=== PATIENT | female | born 1990 | race Caucasian/White ===

== ENCOUNTER 2020-05-15 17:09 | Emergency (ER) | payer SELFPAY ==
--- NOTE | 2020-05-15 18:04 | EDM.PDOC ---
ED HPI GENERAL MEDICAL PROBLEM - General Chief Complaint: Gastrointestinal Problem Stated Complaint: SHOOTING PAIN FROM FRONT TO BACK IN ABDM Time Seen by Provider: 05/15/20 17:43 Source of Information: Reports: Patient History Limitations: Reports: No Limitations - History of Present Illness INITIAL COMMENTS - FREE TEXT/NARRATIVE: HISTORY AND PHYSICAL: History of present illness: Patient is a 29-year-old female who presents emergency room today with concern of epigastric abdominal pain that radiated to her back for 30 minutes just prior to arrival to the emergency room. Patient states she is currently not having any symptoms or abdominal pain. Patient states that she was eating and 10 minutes later started developing right upper quadrant/epigastric abdominal pain that radiated and wrapped around to her back. Patient states that she describes as sharp in nature. Patient states she has had episodes of these prior, but none of them have ever lasted as long. Patient states she felt nauseous during the event but did not vomit. Patient states that at this time she is currently free of all symptoms. Patient denies fever, chills, chest pain, shortness of breath, or cough. Denies headache, neck stiff ness, change in vision, syncope, or near syncope. Denies nausea, vomiting, abdominal pain, diarrhea, constipation, or dysuria. Has not noted any blood in urine or stool. Patient has been eating and drinking appropriately. Review of systems: As per history of present illness and below otherwise all systems reviewed and negative. Past medical history: As per history of present illness and as reviewed below otherwise noncontributory. Surgical history: As per history of present illness and as reviewed below otherwise noncontributory. Social history: See social history for further information Family history: As per history of present illness and as reviewed below otherwise noncontributory. Physical exam: General: Patient is alert, oriented, and in no acute distress. Patient sitting comfortably on exam table. Vitals stable and reviewed by me. HEENT: Atraumatic, normocephalic, pupils equal and reactive bilaterally, negative for conjunctival pallor or scleral icterus, mucous membranes moist, TMs normal bilaterally, throat clear, neck supple, nontender, trachea midline. No drooling or trismus noted. No meningeal signs. No hot potato voice noted. Lungs: Clear to auscultation, breath sounds equal bilaterally, chest nontender. Heart: S1S2, regular rate and rhythm without overt murmur Abdomen: Soft, nondistended, nontender, negative Hammer/rebound. Negative for masses or hepatosplenomegaly. Negative for costovertebral tenderness. Pelvis: Stable nontender. Genitourinary: Deferred. Rectal: Deferred. Skin: Intact, warm, dry. No lesions or rashes noted. Extremities: Atraumatic, negative for cords or calf pain. Neurovascular unremarkable. Neuro: Awake, alert, oriented. Cranial nerves II through XII unremarkable. Cerebellum unremarkable. Motor and sensory unremarkable throughout. Exam nonfocal. Notes: Due to the description of patient's symptoms, I do suspect gallbladder etiology. I did offer diagnostics and lab evaluation at this time but patient declines as she is currently symptom-free. I discussed with patient trying a low-fat diet and discussed following up with her primary care provider or general surgery for further evaluation of her gallbladder. Signs and symptoms that were prompt return to the ED thoroughly discussed with patient. Discussed importance for follow-up with a primary care provider. Voices understanding and is agreeable to plan of care. Denies any further questions or concerns at this time. Diagnostics: None Therapeutics: None Prescription: None Impression: Medical screening exam History of right upper quadrant abdominal pain Plan: 1. You can alternate ibuprofen and Tylenol as directed for pain and discomfort. 2. Follow-up with a primary care provider as discussed. Return to the ED as needed and as discussed. 3. Try to keep a low-fat diet as discussed. Definitive disposition and diagnosis as appropriate pending reevaluation and review of above. Abdomen Pain Score (Numeric/FACES): 2 - Related Data Allergies Allergy/AdvReac Type Severity Reaction Status Date / Time No Known Allergies Allergy Verified 02/23/19 11:15 Past Medical History - Infectious Disease History Infectious Disease History: Reports: Chicken Pox - Past Surgical History GI Surgical History: Reports: Bariatric Procedure Other GI Surgeries/Procedures: gastric sleeve 2019 Social & Family History - Family History Family Medical History: No Pertinent Family History - Tobacco Use Tobacco Use Status *Q: Current Every Day Tobacco User Years of Tobacco use: 12 Packs/Tins Daily: 0.5 - Caffeine Use Caffeine Use: Reports: Coffee Other Caffeine Use: 24 oz/day - Recreational Drug Use Recreational Drug Use: No ED ROS GENERAL - Review of Systems Review Of Systems: Comprehensive ROS is negative, except as noted in HPI. ED EXAM, GENERAL - Physical Exam Exam: See Below (see dictation) Course - Vital Signs Last Recorded V/S: Last Vital Signs Temp 97.3 F 05/15/20 17:35 Pulse 75 05/15/20 17:35 Resp 20 05/15/20 17:35 BP 116/66 05/15/20 17:35 Pulse Ox 97 05/15/20 17:35 Departure - Departure Time of Disposition: 18:03 Disposition: Home, Self-Care 01 Clinical Impression: History of abdominal pain, Encounter for medical screening examination - Discharge Information Referrals: Esperanza Silva NP [Primary Care Provider] - Forms: ED Department Discharge Additional Instructions: The following information is given to patients seen in the emergency department who are being discharged to home. This information is to outline your options for follow-up care. We provide all patients seen in our emergency department with a follow-up referral. The need for follow-up, as well as the timing and circumstances, are variable depending upon the specifics of your emergency department visit. If you don't have a primary care physician on staff, we will provide you with a referral. We always advise you to contact your personal physician following an emergency department visit to inform them of the circumstance of the visit and for follow-up with them and/or the need for any referrals to a consulting sp ecialist. The emergency department will also refer you to a specialist when appropriate. This referral assures that you have the opportunity for follow-up care with a specialist. All of these measure are taken in an effort to provide you with optimal care, which includes your follow-up. Under all circumstances we always encourage you to contact your private physician who remains a resource for coordinating your care. When calling for follow-up care, please make the office aware that this follow-up is from your recent emergency room visit. If for any reason you are refused follow-up, please contact the [facility] Emergency Department at and asked to speak to the emergency department charge nurse. [facility] Primary Care [address] [place] [id number] [id number] [facility] - General Surgery Professional Building [address] [place] [address], [address] [place] [address] 1. You can alternate ibuprofen and Tylenol as directed for pain and discomfort. 2. Follow-up with a primary care provider as discussed. Return to the ED as needed and as discussed. 3. Try to keep a low-fat diet as discussed. Sepsis Event Note (ED) - Evaluation Sepsis Screening Result: No Definite Risk - Focused Exam Vital Signs: Vital Signs Temp Pulse Resp BP Pulse Ox 05/15/20 17:35 97.3 F 75 20 116/66 97
== END 2020-05-15 18:36 | disposition home or self-care (01) ==
LOC: MW.ED 17:09
DX: R10.11 Right upper quadrant pain (principal); R11.0 Nausea; Z72.0 Tobacco use
CPT/HCPCS: 99282

== ENCOUNTER 2020-05-16 17:22 | Emergency (ER) | payer SELFPAY ==
[2020-05-16] MEDS ORDERED: Sodium Chloride 0.9% 10 ML Syringe FLUSH PRN (17:36)
[2020-05-16] MEDS ORDERED: Sodium Chloride 0.9% 2.5 ML Syringe FLUSH PRN (17:36)
[2020-05-16] MEDS ORDERED: Morphine 4 MG/ML Syringe IVPUSH ONE (17:37)
[2020-05-16] MEDS ORDERED: Lactated Ringers 1,000 ML IV SCH (17:45)
[2020-05-16 18:15] LABS: BLOOD UREA NITROGEN,BUN 12 mg/dL (7.0-18.0); CARBON DIOXIDE,CO2 25.5 mmol/L (21.0-32.0); CHLORIDE,CL 102 mmol/L (98-107); GLUCOSE RANDOM 105 mg/dL (74-106); LIPASE 156 U/L (73-393); POTASSIUM,K 3.8 mmol/L (3.5-5.1); SODIUM,NA 139 mmol/L (136-145)
[2020-05-16] MEDS ORDERED: cefTRIAXone 1 GM in Premix Bag 1 BAG IV ONE (18:34)
--- NOTE | 2020-05-16 19:38 | EDM.PDOC ---
<Harshad Rogers - Last Filed: 05/16/20 19:36> ED HPI GENERAL MEDICAL PROBLEM - General Chief Complaint: Abdominal Pain Stated Complaint: GALLBLADDER Time Seen by Provider: 05/16/20 17:31 - History of Present Illness INITIAL COMMENTS - FREE TEXT/NARRATIVE: CHIEF COMPLAINT(S): Abdominal pain HISTORY OF PRESENT ILLNESS: This is a 29-year-old woman without any past medical history who comes to the emergency department with a chief complaint of abdominal pain. The patient states that she was evaluated here yesterday and told that she may have gallbladder issues. She states that she called and made an appointment today but has an appointment tomorrow however she started to experience severe and constant epigastric and right upper quadrant pain associated with nausea but no vomiting. She denies any exacerbating factors or relieving factors. She denies any radiation of this pain. She denies any melena, hematochezia, hematemesis, bilious emesis. She denies any vaginal bleeding, vaginal discharge or dysuria. She denies any fevers or chills. REVIEW OF SYSTEMS: Constitutional: Denies fever, chills. Eyes: Denies eye pain Ears, Nose, Mouth, & Throat: Denies earache Cardiovascular: Denies chest pain Respiratory: Denies shortness of breath Gastrointestinal: Positive for epigastric and right upper quadrant abdominal pain and nausea. Denies vomiting, diarrhea, hematochezia, melena, hematemesis, bilious emesis Genitourinary: Denies hematuria, dysuria Skin:Denies a rash MSK: Denies joint pain Neurological: Denies blurred vision Psychiatric: Denies depression PAST MEDICAL HISTORY: As per history of present illness and as reviewed below otherwise noncontributory. SURGICAL HISTORY: As per history of present illness and as reviewed below otherwise noncontributory. SOCIAL HISTORY: As per history of present illness and as reviewed below otherwise noncontributory. FAMILY HISTORY: As per history of present illness and as reviewed below otherwise noncontributory. EXAMINATION OF ORGAN SYSTEMS/BODY AREAS: Constitutional: Blood pressure is 136/70, heart rate 85, respiratory rate 18 with an oxygen saturation 100 on room air. Temperature 36.2 General: Young woman who is crying and appears to be in pain Psychiatric: Appropriate mood and affect. Eyes: No scleral icterus or conjunctival erythema ENMT: Moist mucous membranes. No pharyngeal erythema Cardiovascular: Regular, rate, and rhythm. No gallops, murmurs, or rubs. Bilateral upper extremity pulses symmetric and intact. No peripheral edema. No JVD. Respiratory: Lungs clear to auscultation bilaterally. No wheezes, rales, or rhonchi. Gastrointestinal: Soft, nondistended, tenderness to palpation in the epigastric and right upper quadrant. Positive Hammer's. Negative rebound or guarding. Normoactive bowel sounds. Genitourinary: No suprapubic tenderness Musculoskeletal: Normal range of motion. Skin: No lesions or abrasions. Neurological: Alert, GCS 15 MEDICAL DECISION MAKING AND COURSE IN THE ED WITH INTERPRETATION/REVIEW OF DIAGNOSTIC STUDIES: This is a 21-year-old woman without any past medical history who comes to the emergency department with acute recurrent right upper quadrant abdominal pain with positive Hammer sign who has stable vitals. At this time we will obtain labs including CBC, CMP, lipase, urinalysis and Covid. Will obtain a right upper quadrant ultrasound and provide her with 1 L of lactated Ringer's bolus and 4 mg of IV morphine. Laboratory: CBC reveals a leukocytosis of 12.69 and thrombocytopenia with a platelet count of 97. CMP reveals hyperbilirubinemia with a total bilirubin of 1.4, transaminitis with an AST of 259, ALT of 224 and elevated alkaline phosphatase at 255. Covid is negative. Urinalysis was a clean catch and was negative for leukocyte esterase, negative for nitrites, and negative for blood. 4+ urobilinogen interpretation: Negative. Reevaluation, patient's pain had improved. Imaging was pending at this time. I did provide the patient with 1 g of ceftriaxone IV given the mild elevated white count and concern for cholecystitis. The patient was signed out to oncoming team physician pending ultrasound read and final disposition DISPOSITION: Patient was signed out to oncoming team physician pending final read and disposition CONDITION: Fair PROCEDURES: None FINAL IMPRESSION(S)/DIAGNOSES: 1. Acute recurrent right upper quadrant abdominal pain, suspect cholecystitis Harshad Rogers M.D. Middle Abdomen Pain Score (Numeric/FACES): 9 - Related Data Allergies Allergy/AdvReac Type Severity Reaction Status Date / Time No Known Allergies Allergy Verified 05/16/20 17:30 Home Meds: Home Meds Dicyclomine [Bentyl] 20 mg PO QIDACANDBED PRN #20 tab 05/16/20 [Rx] Ibuprofen 600 mg PO Q6HR PRN #30 tablet 05/16/20 [Rx] Omeprazole 20 mg PO DAILY 05/16/20 [History] Ondansetron [Zofran ODT] 4 mg PO Q6H PRN #12 tab.dis 05/16/20 [Rx] traMADol [Ultram] 50 mg PO Q6H PRN #12 tab 05/16/20 [Rx] Past Medical History - Past Health History Medical/Surgical History: Denies Medical/Surgical History HEENT History: Reports: Impaired Vision 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: Reports: GERD 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 MCKAY History: Reports: Polycystic Ovaries - Infectious Disease History Infectious Disease History: Reports: Chicken Pox - Past Surgical History GI Surgical History: Reports: Bariatric Procedure Other GI Surgeries/Procedures: gastric sleeve 2019 Social & Family History - Family History Family Medical History: No Pertinent Family History - Tobacco Use Tobacco Use Status *Q: Current Every Day Tobacco User Years of Tobacco use: 13 Packs/Tins Daily: 0.5 - Caffeine Use Caffeine Use: Reports: Coffee Other Caffeine Use: 24 oz/day - Recreational Drug Use Recreational Drug Use: No ED ROS GENERAL - Review of Systems Review Of Systems: See Below ED EXAM, GENERAL - Physical Exam Exam: See Below Departure - Departure Disposition: Home, Self-Care 01 Clinical Impression: Cholelithiasis with choledocholithiasis - Discharge Information Instructions: Cholelithiasis, Biliary Colic, Adult Referrals: Esperanza Silva LANDSCAPE ENGINEER [Primary Care Provider] - Forms: ED Department Discharge Additional Instructions: You were seen and evaluated ER today secondary to pain in your right upper quadrant. This pain is most likely secondary to gallstones within your gallbladder. Your ultrasound does not reveal any evidence of a gallbladder infection. Please keep your appointment tomorrow with Dr. Ronquillo for further luis luation of your gallbladder. Please return to the ER if your pain returns. You will be sent home with a prescription for Zofran to take for nausea Ibuprofen to take for pain Ultram to take for pain Bentyl to take for abdominal spasms. [facility] - General Surgery Professional Building [address] [place] [address], [address] [place] [address] The following information is given to patients seen in the emergency department who are being discharged to home. This information is to outline your options for follow-up care. We provide all patients seen in our emergency department with a follow-up referral. The need for follow-up, as well as the timing and circumstances, are variable depending upon the specifics of your emergency department visit. If you don't have a primary care physician on staff, we will provide you with a referral. We always advise you to contact your personal physician following an emergency department visit to inform them of the circumstance of the visit and for follow-up with them and/or the need for any referrals to a consulting specialist. The emergency department will also refer you to a specialist when appropriate. This referral assures that you have the opportunity for follow-up care with a specialist. All of these measure are taken in an effort to provide you with optimal care, which includes your follow-up. Under all circumstances we always encourage you to contact your private physician who remains a resource for coordinating your care. When calling for follow-up care, please make the office aware that this follow-up is from your recent emergency room visit. If for any reason you are refused follow-up, please contact the [facility] Emergency Department at and asked to speak to the emergency department charge nurse. [facility] - Primary Care [address] [place] [address] [place] [address] Sepsis Event Note (ED) - Evaluation Sepsis Screening Result: No Definite Risk <Sha Herzog - Last Filed: 05/16/20 20:17> ED HPI GENERAL MEDICAL PROBLEM - History of Present Illness INITIAL COMMENTS - FREE TEXT/NARRATIVE: 7 PM: Signout received. In brief this is a 29-year-old female who has a second presentation to the ED secondary to right upper quadrant abdominal pain. Upon my arrival into the ED, the patient reports that her pain is completely resolved and she feels much improved. This appears to be a similar presentation as yesterday. Patient's labs are significant for mildly elevated LFTs. Patient's ultrasound reveals normal gallbladder with no evidence of cholecystitis. No biliary ductal dilatation. No pericholecystic fluid or thickening of her gallbladder wall. No sonographic Hammer sign. Patient's repeat exam right now despite mashing in her right upper quadrant has no discomfort or wincing. Gibran duncan has a appointment with Dr. Ronquillo our surgeon tomorrow at 230. Patient feels very comfortable with the plan to be discharged home at this time with Sara Garcia Ultram, Bentyl. I have discussed with the patient dietary restrictions. Patient reports she did not eat anything this afternoon or evening prior to the onset of her pain. Abd: Soft, nondistended, no rebound/guarding, no psoas or obturator signs, no tenderness at Mcberney's point, no Hammer's sign. Pt does not present with an exam that would be consistent with an acute surgical abdomen at this time Discharged home with follow-up with Dr. Ronquillo. Diagnosis: Choledocholithiasis. Resolved Course - Vital Signs Last Recorded V/S: Last Vital Signs Temp 97.2 F 05/16/20 17:31 Pulse 85 05/16/20 17:31 Resp 18 05/16/20 17:31 BP 136/70 05/16/20 17:31 Pulse Ox 100 05/16/20 17:31 - Orders/Labs/Meds Orders: Active Orders 24 hr Category Date Time Status Lactated Ringers [Ringers, Lactated] 1,000 ml Med 05/16/20 17:45 Active IV ASDIRECTED Sodium Chloride 0.9% [Saline Flush] Med 05/16/20 17:36 Active 10 ml FLUSH ASDIRECTED PRN Sodium Chloride 0.9% [Saline Flush] Med 05/16/20 17:36 Active 2.5 ml FLUSH ASDIRECTED PRN Saline Lock Insert [OM.PC] Stat Oth 05/16/20 17:36 Ordered Medication Orders Lactated Ringer's (Ringers, Lactated) 1,000 mls @ 999 mls/hr IV ASDIRECTED WATSON Last Admin: 05/16/20 17:45 Dose: 999 mls/hr Documented by: WAYNE Sodium Chloride (Sodium Chloride 0.9% 10 Ml Syringe) 10 ml FLUSH ASDIRECTED PRN PRN Reason: Keep Vein Open Last Admin: 05/16/20 17:45 Dose: 10 ml Documented by: WAYNE Sodium Chloride (Sodium Chloride 0.9% 2.5 Ml Syringe) 2.5 ml FLUSH ASDIRECTED PRN PRN Reason: Keep Vein Open Last Admin: 05/16/20 17:45 Dose: 2.5 ml Documented by: WAYNE Labs: Laboratory Tests 05/16/20 05/16/20 05/16/20 Range/Units 17:35 17:35 17:40 WBC 12.69 H (4.0-11.0) K/uL RBC 5.47 (4.30-5.90) M/uL Hgb 16.1 H (12.0-16.0) g/dL Hct 46.5 H (36.0-46.0) % MCV 85.0 (80.0-98.0) fL MCH 29.4 (27.0-32.0) pg MCHC 34.6 (31.0-37.0) g/dL RDW Std Deviation 37.5 (28.0-62.0) fl RDW Coeff of Hayden 12 (11.0-15.0) % Plt Count 97 L (150-400) K/uL MPV 11.40 (7.40-12.00) fL Neut % (Auto) 64.6 (48.0-80.0) % Lymph % (Auto) 26.5 (16.0-40.0) % [place] % (Auto) 7.4 (0.0-15.0) % Eos % (Auto) 1.3 (0.0-7.0) % Baso % (Auto) 0.2 (0.0-1.5) % Neut # (Auto) 8.2 H (1.4-5.7) K/uL Lymph # (Auto) 3.4 H (0.6-2.4) K/uL [place] # (Auto) 0.9 H (0.0-0.8) K/uL Eos # (Auto) 0.2 (0.0-0.7) K/uL Baso # (Auto) 0.0 (0.0-0.1) K/uL Nucleated RBC % 0.0 /100WBC Nucleated RBCs # 0 K/uL Sodium 139 (136-145) mmol/L Potassium 3.8 (3.5-5.1) mmol/L Chloride 102 (98-107) mmol/L Carbon Dioxide 25.5 (21.0-32.0) mmol/L BUN 12 (7.0-18.0) mg/dL Creatinine 0.8 (0.6-1.0) mg/dL Est Cr Clr Drug Dosing 94.21 mL/min Estimated GFR (MDRD) > 60.0 ml/min Glucose 105 (74-106) mg/dL Calcium 9.3 (8.5-10.1) mg/dL Total Bilirubin 1.4 H (0.2-1.0) mg/dL AST 259 H (15-37) IU/L ALT 224 H (14-63) IU/L Alkaline Phosphatase 255 H (46-116) U/L Total Protein 7.5 (6.4-8.2) g/dL Albumin 4.0 (3.4-5.0) g/dL Globulin 3.5 (2.6-4.0) g/dL Albumin/Globulin Ratio 1.1 (0.9-1.6) Lipase 156 (73-393) U/L Urine Color YELLOW Urine Appearance CLEAR Urine pH 7.0 (5.0-8.0) Ur Specific Crow[place] 1.025 (1.001-1.035) Urine Protein NEGATIVE (NEGATIVE) mg/dL Urine Glucose (UA) NEGATIVE (NEGATIVE) mg/dL Urine Ketones NEGATIVE (NEGATIVE) mg/dL Urine Occult Blood NEGATIVE (NEGATIVE) Urine Nitrite NEGATIVE (NEGATIVE) Urine Bilirubin NEGATIVE (NEGATIVE) Urine Urobilinogen 4.0 H (<2.0) EU/dL Ur Leukocyte Esterase NEGATIVE (NEGATIVE) Urine HCG, Qual (NEGATIVE) SARS-CoV-2 RNA (ROSANA) (NEGATIVE) 05/16/20 05/16/20 Range/Units 17:40 17:45 WBC (4.0-11.0) K/uL RBC (4.30-5.90) M/uL Hgb (12.0-16.0) g/dL Hct (36.0-46.0) % MCV (80.0-98.0) fL MCH (27.0-32.0) pg MCHC (31.0-37.0) g/dL RDW Std Deviation (28.0-62.0) fl RDW Coeff of Hayden (11.0-15.0) % Plt Count (150-400) K/uL MPV (7.40-12.00) fL Neut % (Auto) (48.0-80.0) % Lymph % (Auto) (16.0-40.0) % [place] % (Auto) (0.0-15.0) % Eos % (Auto) (0.0-7.0) % Baso % (Auto) (0.0-1.5) % Neut # (Auto) (1.4-5.7) K/uL Lymph # (Auto) (0.6-2.4) K/uL [place] # (Auto) (0.0-0.8) K/uL Eos # (Auto) (0.0-0.7) K/uL Baso # (Auto) (0.0-0.1) K/uL Nucleated RBC % /100WBC Nucleated RBCs # K/uL Sodium (136-145) mmol/L Potassium (3.5-5.1) mmol/L Chloride (98-107) mmol/L Carbon Dioxide (21.0-32.0) mmol/L BUN (7.0-18.0) mg/dL Creatinine (0.6-1.0) mg/dL Est Cr Clr Drug Dosing mL/min Estimated GFR (MDRD) ml/min Glucose (74-106) mg/dL Calcium (8.5-10.1) mg/dL Total Bilirubin (0.2-1.0) mg/dL AST (15-37) IU/L ALT (14-63) IU/L Alkaline Phosphatase (46-116) U/L Total Protein (6.4-8.2) g/dL Albumin (3.4-5.0) g/dL Globulin (2.6-4.0) g/dL Albumin/Globulin Ratio (0.9-1.6) Lipase (73-393) U/L Urine Color Urine Appearance Urine pH (5.0-8.0) Ur Specific [place] (1.001-1.035) Urine Protein (NEGATIVE) mg/dL Urine Glucose (UA) (NEGATIVE) mg/dL Urine Ketones (NEGATIVE) mg/dL Urine Occult Blood (NEGATIVE) Urine Nitrite (NEGATIVE) Urine Bilirubin (NEGATIVE) Urine Urobilinogen (<2.0) EU/dL Ur Leukocyte Esterase (NEGATIVE) Urine HCG, Qual NEGATIVE (NEGATIVE) SARS-CoV-2 RNA (ROSANA) NEGATIVE (NEGATIVE) Meds: Medications Generic Name Dose Route Start Last Admin Trade Name Freq PRN Reason Stop Dose Admin Lactated Ringer's 1,000 mls @ 999 mls/hr 05/16/20 17:45 05/16/20 17:45 Ringers, Lactated IV 999 mls/hr ASDIRECTED WATSON Administration Sodium Chloride 10 ml 05/16/20 17:36 05/16/20 17:45 Sodium Chloride 0.9% 10 Ml Syringe FLUSH 10 ml ASDIRECTED PRN Administration Keep Vein Open Sodium Chloride 2.5 ml 05/16/20 17:36 05/16/20 17:45 Sodium Chloride 0.9% 2.5 Ml Syringe FLUSH 2.5 ml ASDIRECTED PRN Administration Keep Vein Open Discontinued Medications Generic Name Dose Route Start Last Admin Trade Name Freq PRN Reason Stop Dose Admin Ceftriaxone Sodium/Dextrose 1 50 mls @ 100 mls/hr 05/16/20 18:34 05/16/20 18:59 gm/ Premix IV 05/16/20 19:03 100 mls/hr ONETIME ONE Administration Morphine Sulfate 4 mg 05/16/20 17:37 05/16/20 17:45 Morphine 4 Mg/Ml Syringe IVPUSH 05/16/20 17:38 4 mg ONETIME ONE Administration Departure - Departure Time of Disposition: 20:13 Condition: Good Sepsis Event Note (ED) - Focused Exam Vital Signs: Vital Signs Temp Pulse Resp BP Pulse Ox 05/16/20 17:31 97.2 F 85 18 136/70 100
--- NOTE | 2020-05-16 19:41 | US ---
INDICATION: Midline pain and right upper quadrant pain. Possible cholecystitis. COMPARISON: None available. TECHNIQUE: Ultrasound examination of the right upper quadrant was performed. FINDINGS: There is moderate cholelithiasis, with numerous small dependent calculi in the gallbladder. There is no sign of acute cholecystitis, with no sign of gallbladder wall thickening or pericholecystic fluid. A sonographic Hammer sign is not present, with no pain over the gallbladder during ultrasound examination. The common bile duct is normal in caliber at 5 mm. The pancreatic head and body were examined, and these are normal in appearance. The abdominal aorta and visualized portions of the inferior vena cava are normal in appearance. The liver shows no sign of mass or contour abnormality, and there is no sign of ascites. Antegrade flow is seen in the portal vein. The right kidney is unremarkable. IMPRESSION: Cholelithiasis without evidence of acute cholecystitis. Common bile duct nondilated at 5 millimeters. Dictated by Jin Sherman MD @ May 16 2020 7:37PM Signed by Dr. Jin Sherman @ May 16 2020 7:39PM
== END 2020-05-16 20:31 | disposition home or self-care (01) ==
LOC: MW.ED 17:22
DX: K80.70 Calculus of gallbladder and bile duct without cholecystitis without obstruction (principal); K21.9 Gastro-esophageal reflux disease without esophagitis; Z72.0 Tobacco use; Z79.899 Other long term (current) drug therapy; Z20.822 Contact with and (suspected) exposure to COVID-19
CPT/HCPCS: 36415; 76705; 80053; 81003; 81025; 83690; 85025; 87635; 96365; 96375; 99284; J0696; J2270; J7120; U0002

== ENCOUNTER 2020-05-20 08:58 | Day surgery (SDC) | payer SELFPAY ==
[~2020-05-20 08:58] MED LIST: Glycopyrrolate 0.2 MG/ML SDV ONE; Ketorolac 30 MG/ML SDV ONE; Lactated Ringers 1,000 ML IV SCH; Lidocaine 2% 5 ML SDV ONE; Midazolam 1 MG/ML 2 ML SDV ONE; Ondansetron 4 MG/2 ML SDV ONE; Propofol 200 MG/20 ML SDV ONE; Rocuronium Bromide 50 MG/5 ML Syringe ONE; Sugammadex Sodium 200 MG/2 ML VIAL ONE; ceFAZolin 2 GM in Premix Bag 1 BAG IV ONE; fentaNYL 250 MCG/5 ML SDV ONE
[2020-05-20] MEDS ORDERED: Octyl 2-Cyanoacrylate 1 Tube ONE (09:51)
[2020-05-20] MEDS ORDERED: Bupivacaine 25%/EPINEPHrine/PF 0 ML ONE (09:51)
[2020-05-20 10:14] LABS: BLOOD UREA NITROGEN,BUN 7 mg/dL (7.0-18.0); CARBON DIOXIDE,CO2 27.6 mmol/L (21.0-32.0); CHLORIDE,CL 104 mmol/L (98-107); GLUCOSE RANDOM 92 mg/dL (74-106); LIPASE 94 U/L (73-393); POTASSIUM,K 4.5 mmol/L (3.5-5.1); SODIUM,NA 139 mmol/L (136-145)
[2020-05-20] MEDS ORDERED: fentaNYL 100 MCG/2 ML SDV ONE (14:02)
[2020-05-20] MEDS ORDERED: Midazolam 1 MG/ML 2 ML SDV ONE (14:02)
[2020-05-20] MEDS ORDERED: fentaNYL 250 MCG/5 ML SDV ONE (14:02)
[2020-05-20] MEDS ORDERED: Propofol 200 MG/20 ML SDV ONE (14:02)
== END 2020-05-20 11:29 | disposition home or self-care (01) ==
LOC: MW.SDS 08:58
PROVIDERS: ATTEND Surgery
DX: K80.20 Calculus of gallbladder without cholecystitis without obstruction (principal); Z53.09 Procedure and treatment not carried out because of other contraindication; K21.9 Gastro-esophageal reflux disease without esophagitis; F17.210 Nicotine dependence, cigarettes, uncomplicated; Z98.84 Bariatric surgery status; Z79.899 Other long term (current) drug therapy; Z98.890 Other specified postprocedural states
CPT/HCPCS: 36415; 80053; 81025; 82150; 83690; 85025; 85027; J1885; J2405; J3010; J3490; J7120; A9270-GY; J2250; J2704

== ENCOUNTER 2020-06-03 07:38 | Day surgery (SDC) | payer SELFPAY ==
[~2020-06-03 07:38] MED LIST changes: -ceFAZolin 2 GM in Premix Bag 1 BAG IV ONE
[2020-06-03] MEDS ORDERED: Octyl 2-Cyanoacrylate 1 Tube ONE (07:56)
[2020-06-03] MEDS ORDERED: Bupivacaine 25%/EPINEPHrine/PF 30 ML ONE (07:56)
--- NOTE | 2020-06-03 08:18 | PCM.PREANE ---
Preanesthetic Assessment - Anesthesia/Transfusion/Family Hx Anesthesia History: Prior Anesthesia Without Reaction Family History of Anesthesia Reaction: No Transfusion History: No Prior Transfusion(s) - Review of Systems General: No Symptoms Pulmonary: No Symptoms Cardiovascular: No Symptoms Gastrointestinal: No Symptoms Neurological: No Symptoms Other: Reports: None - Physical Assessment NPO Status Date: 06/03/20 NPO Status Time: 00:01 Height: 5 ft 5 in Weight: 221 lb ASA Class: 2 Mental Status: Alert & Oriented x3 Airway Class: Mallampati = 2 Dentition: Reports: Normal Dentition ROM/Head Extension: Full Lungs: Clear to Auscultation, Normal Respiratory Effort Cardiovascular: Regular Rate, Regular Rhythm - Allergies Allergies/Adverse Reactions: Allergies Allergy/AdvReac Type Severity Reaction Status Date / Time No Known Allergies Allergy Verified 06/01/20 13:53 - Anesthesia Plan Pre-Op Medication Ordered: None - Acknowledgements Anesthesia Type Planned: General Anesthesia Pt an Appropriate Candidate for the Planned Anesthesia: Yes Alternatives and Risks of Anesthesia Discussed w Pt/Guardian: Yes Pt/Guardian Understands and Agrees with Anesthesia Plan: Yes Additional Comments: npo after mn sugey obesity bmi 37 etoh rare tob 1/3 ppd no cv problems par no questions PreAnesthesia Questionnaire - Past Health History Medical/Surgical History: Denies Medical/Surgical History HEENT History: Reports: Other (See Below) Other HEENT History: wears glasses/contacts 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: Reports: Cholelithiasis 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 ANALYST History: Reports: Polycystic Ovaries Neurological History: Reports: Concussion Endocrine/Metabolic History: Reports: Obesity/BMI 30+ Hematologic History: Reports: Other (See Below) Other Hematologic History: recent low platlet count Dermatologic History: Reports: Psoriasis - Infectious Disease History Infectious Disease History: Reports: Chicken Pox - Past Surgical History Head Surgeries/Procedures: Reports: None HEENT Surgical History: Reports: Tonsillectomy GI Surgical History: Reports: Bariatric Procedure Other GI Surgeries/Procedures: hx of gastric sleeve Neurological Surgical History: Reports: None - SUBSTANCE USE Tobacco Use Status *Q: Current Every Day Tobacco User Tobacco Use Within Last Twelve Months: Cigarettes Recreational Drug Use History: No - HOME MEDS Home Medications: Home Meds Dicyclomine [Bentyl] 20 mg PO QIDACANDBED PRN #20 tab 05/16/20 [Rx] Ibuprofen 600 mg PO Q6HR PRN #30 tablet 05/16/20 [Rx] Omeprazole 20 mg PO DAILY 05/16/20 [History] Ondansetron [Zofran ODT] 4 mg PO Q6H PRN #12 tab.dis 05/16/20 [Rx] traMADol [Ultram] 50 mg PO Q6H PRN #12 tab 05/16/20 [Rx] - CURRENT (IN HOUSE) MEDS Current Meds: Current Medications Lactated Ringer's (Ringers, Lactated) 1,000 mls @ 125 mls/hr IV ASDIRECTED WATSON Discontinued Medications Fentanyl (Fentanyl 250 Mcg/5 Ml Sdv) Confirm Administered Dose 250 mcg .ROUTE .STK-MED ONE Stop: 06/03/20 06:48 Glycopyrrolate (Glycopyrrolate 0.2 Mg/Ml Sdv) Confirm Administered Dose 0.2 mg .ROUTE .STK-MED ONE Stop: 06/03/20 06:48 Bupivacaine HCl/Epinephrine Bitart (Sensorc Mpf 0.25%-Epi [id number]) Confirm Administered Dose 30 mls @ as directed .ROUTE .STK-MED ONE Stop: 06/03/20 07:57 Ketorolac Tromethamine (Ketorolac 30 Mg/Ml Sdv) Confirm Administered Dose 30 mg .ROUTE .STK-MED ONE Stop: 06/03/20 06:48 Lidocaine (Lidocaine 2% 5 Ml Sdv) Confirm Administered Dose 5 ml .ROUTE .STK-MED ONE Stop: 06/03/20 06:48 Midazolam HCl (Midazolam 1 Mg/Ml 2 Ml Sdv) Confirm Administered Dose 2 mg .ROUTE .STK-MED ONE Stop: 06/03/20 06:48 Octyl Cyanoacrylate (Octyl 2-Cyanoacrylate 1 Tube) Confirm Administered Dose 1 applic .ROUTE .STK-MED ONE Stop: 06/03/20 07:57 Ondansetron HCl (Ondansetron 4 Mg/2 Ml Sdv) Confirm Administered Dose 4 mg .ROUTE .STK-MED ONE Stop: 06/03/20 06:48 Propofol (Propofol 200 Mg/20 Ml Sdv) Confirm Administered Dose 200 mg .ROUTE .STK-MED ONE Stop: 06/03/20 06:48 Rocuronium [place] (Rocuronium [place] 50 Mg/5 Ml Syringe) Confirm Administered Dose 50 mg .ROUTE .STK-MED ONE Stop: 06/03/20 06:48 Sugammadex Sodium (Sugammadex Sodium 200 Mg/2 Ml Vial) Confirm Administered Dose 200 mg .ROUTE .K-MED ONE Stop: 06/03/20 06:50
[2020-06-03] MEDS ORDERED: Sodium Chloride 0.9% 20 ML ONE (09:19)
[2020-06-03] MEDS ORDERED: ceFAZolin 1 GM Vial ONE (09:19)
[2020-06-03] MEDS ORDERED: Acetaminophen 1,000 MG in Premix Bag 1 BAG IV PRN (09:34)
[2020-06-03] MEDS ORDERED: fentaNYL 100 MCG/2 ML SDV IVPUSH PRN (09:34)
[2020-06-03] MEDS ORDERED: fentaNYL 250 MCG/5 ML SDV ONE (09:41)
--- NOTE | 2020-06-03 10:40 | PCM.OPNOTE ---
- General Post-Op/Procedure Note Date of Surgery/Procedure: 06/03/20 Operative Procedure(s): lap jose Findings: gb distended and yellow and green, cw chronic and acute cholecystitis; wall is not thickened; lots of adherence from prior surgery; and lots of gallstones; surgicall inserted for hemostasis; [id number] Pre Op Diagnosis: acute and chronic cholecystitis Post-Op Diagnosis: Same Anesthesia Technique: General ET Tube Primary Surgeon: rod Pathology: sent Complications: None Condition: Good
[2020-06-03] MEDS ORDERED: Acetaminophen/oxyCODONE 325-5 MG Tab PO ONE (10:44)
[2020-06-03] MEDS ORDERED: Meperidine PF 25 MG/ML Syringe IVPUSH ONE (10:54)
--- NOTE | 2020-06-03 11:38 | PCM.POSTAN ---
POST ANESTHESIA ASSESSMENT - MENTAL STATUS Mental Status: Alert (no anesthetic problems), Oriented - VITAL SIGNS Vital Signs: Last Vital Signs Temp 97.7 F 06/03/20 10:39 Pulse 77 06/03/20 11:15 Resp 10 L 06/03/20 11:15 BP 108/72 06/03/20 11:15 Pulse Ox 99 06/03/20 11:15 - RESPIRATORY Respiratory Status: Respiratory Rate WNL, Airway Patent, O2 Saturation Stable - CARDIOVASCULAR CV Status: Pulse Rate WNL, Blood Pressure Stable - GASTROINTESTINAL GI Status: No Symptoms - POST OP HYDRATION Hydration Status: Adequate & Stable
--- NOTE | 2020-06-03 13:13 | PCM48HPAN ---
Post Anesthesia Note - EVALUATION WITHIN 48HRS OF ANESTHETIC Vital Signs in Normal Range: Yes Patient Participated in Evaluation: Yes Respiratory Function Stable: Yes Airway Patent: Yes Cardiovascular Function Stable: Yes Hydration Status Stable: Yes Pain Control Satisfactory: Yes Nausea and Vomiting Control Satisfactory: Yes Mental Status Recovered: Yes Vital Signs: Last Vital Signs Temp 97.3 F 06/03/20 11:20 Pulse 67 06/03/20 12:10 Resp 16 06/03/20 12:10 BP 106/65 06/03/20 12:10 Pulse Ox 98 06/03/20 12:10
--- NOTE | 2020-06-03 13:54 | OR ---
SURGEON: Ramírez Vidal MD DATE OF PROCEDURE: 06/03/2020 PREOPERATIVE DIAGNOSIS: Acute on chronic cholecystitis. POSTOPERATIVE DIAGNOSIS: Acute on chronic cholecystitis. PROCEDURE PERFORMED: Laparoscopic cholecystectomy. PRIMARY SURGEON: Ramírez Vidal MD COMPLICATIONS: None. FINDINGS: Gallbladder was distended and yellow and green with lots of stone. Wall was not thickened. DESCRIPTION OF PROCEDURE: The patient was taken to the operating room and placed in the supine position. After the intubation of general endotracheal anesthesia, the patient's abdomen was prepped and draped in the usual sterile fashion. Using [employer], a 12 mm trocar was placed supraumbilically and then followed with pneumoperitoneum. A 5 mm trocar was placed in the epigastrium and two 5 mm trocars placed in the right upper quadrant. The placement of the last three trocars was done under direct video supervision. Upon gaining entrance to the abdominal cavity, an extensive examination was then performed. The gallbladder was located and identified and retracted to the dome of the liver at the triangle of Calot. The cystic duct was clipped three more times and then using the endoscopic clip, was transected with placement of the endoscopic clip and transection was performed with care, ensuring the posterior prong of the instruments were clearly visualized prior to exercising the procedure. The gallbladder was dissected using electrocautery out of the liver bed and then removed using endoscopic bag through the umbilical site. The gallbladder was removed en bloc and there was no bile spillage and this was then followed with extensive irrigation until the bile was clear from blood and bile. The trocars were then removed under direct video supervision. The 12 mm umbilical site was then closed with deep stitches using 0 Vicryl followed with proximal stitches using 3-0 Vicryl and Dermabond. The other three trocar sites were closed with 3-0 Vicryl followed with approximation of skin with Dermabond. The patient was then awakened and extubated and transferred to the recovery room in hemodynamically stable condition. At the conclusion of the surgery, before closing the abdominal wound, instrument count and sponge count were done and were correct. The patient tolerated the procedure well and there were no intraoperative complications. Dr. Vidal was present through the whole procedure. Just before surgery, a timeout was called. The patient was identified and procedure identified and procedure started. Intraoperative findings as dictated above. At the end of the surgery, a piece of Surgicel was inserted for hemostasis. RUKHSANA HUGHES /[id number]
== END 2020-06-03 12:35 | disposition home or self-care (01) ==
LOC: MW.SDS 07:38
PROVIDERS: ATTEND Surgery
DX: K80.12 Calculus of gallbladder with acute and chronic cholecystitis without obstruction (principal); K21.9 Gastro-esophageal reflux disease without esophagitis; F17.210 Nicotine dependence, cigarettes, uncomplicated; E66.9 Obesity, unspecified; Z79.899 Other long term (current) drug therapy; Z98.890 Other specified postprocedural states; Z98.84 Bariatric surgery status; Z68.36 Body mass index [BMI] 36.0-36.9, adult
CPT/HCPCS: 47562; 81025; A9270; J0690; J1885; J2175; J2250; J2405; J2704; J3010; J3490; J7120; 00790; 88304